=== PATIENT | female | born 1960 ===

== ENCOUNTER 2021-02-23 04:21 | Day surgery (SDC) | payer OTHER ==
[2021-02-21 13:01] VITALS: BMI 32.8
[2021-02-23] MEDS ORDERED: BUPIVACAINE LIPOSOME/PF (EXPAREL) 266 MG/20 ML VIAL ONE (08:39)
[2021-02-23] MEDS ORDERED: DEXAMETHASONE SOD PHOSPHATE 10 MG/1 ML VIAL ONE (08:39)
[2021-02-23] MEDS ORDERED: BUPIVACAINE HCL 150 ML ONE (08:39)
[2021-02-23] MEDS ORDERED: MIDAZOLAM HCL 2 MG/2 ML SINGLE DOSE VIAL ONE ×2 (08:46)
[2021-02-23] MEDS ORDERED: LIDOCAINE HCL/PF 2% SDV 5ML VIAL ONE (09:31)
[2021-02-23] MEDS ORDERED: ceFAZolin SODIUM 1 GM VIAL ONE (09:31)
[2021-02-23] MEDS ORDERED: PROPOFOL 20 ML ONE ×2 (09:32)
[2021-02-23] MEDS ORDERED: ceFAZolin SODIUM 1 GM VIAL IVPB ONE (10:17)
[2021-02-23] MEDS ORDERED: DEXAMETHASONE SOD PHOSPHATE 4 MG/1 ML VIAL ONE (10:41)
[2021-02-23] MEDS ORDERED: ONDANSETRON 4 MG/2 ML VIAL ONE (10:41)
[2021-02-23] MEDS ORDERED: ACETAMINOPHEN 325 MG TABLET (FP) PO PRN (11:20)
[2021-02-23] MEDS ORDERED: ONDANSETRON 4 MG/2 ML VIAL IVPUSH PRN (11:20)
[2021-02-23] MEDS ORDERED: LACTATED RINGERS SOLUTION 1,000 ML IV SCH (11:30)
[2021-02-23 12:56] VITALS: PULSE 74
[2021-02-23 16:41] VITALS: BP 148/85; TEMP 98
== END 2021-02-23 16:35 | disposition home or self-care (01) ==
LOC: JASU-SURG 04:21
PROVIDERS: ATTEND Orthopaedic Surgery
PROC: 0RNK4ZZ Release Left Shoulder Joint, Percutaneous Endoscopic Approach (ICD-10-PCS; principal; 2021-02-23 09:00)
PROC: 0PBB4ZZ Excision of Left Clavicle, Percutaneous Endoscopic Approach (ICD-10-PCS; 2021-02-23 09:00)
DX: M75.42 Impingement syndrome of left shoulder (principal); M75.02 Adhesive capsulitis of left shoulder
CPT/HCPCS: 94760; J1100

== ENCOUNTER 2021-08-02 04:35 | Day surgery (SDC) | payer OTHER ==
[2021-07-26 16:46] VITALS: BMI 29.6
[2021-08-02 08:42] VITALS: TEMP 98.6
[2021-08-02 09:35] VITALS: BP 143/82; PULSE 56
== END 2021-08-02 09:47 | disposition home or self-care (01) ==
LOC: JASU-ENDO 04:35
PROVIDERS: ATTEND Internal Medicine Gastroenterology
PROC: 0DJD8ZZ Inspection of Lower Intestinal Tract, Via Natural or Artificial Opening Endoscopic (ICD-10-PCS; principal; 2021-08-02 08:00)
DX: Z12.11 Encounter for screening for malignant neoplasm of colon (principal); K57.30 Diverticulosis of large intestine without perforation or abscess without bleeding; K64.8 Other hemorrhoids

== ENCOUNTER 2021-08-30 04:46 | Day surgery (SDC) | payer OTHER ==
[2021-08-30 07:26] VITALS: BMI 31.4
[2021-08-30 08:32] VITALS: TEMP 97.3
[2021-08-30 09:06] VITALS: PULSE 56
[2021-08-30 09:07] VITALS: BP 143/88
== END 2021-08-30 09:25 | disposition home or self-care (01) ==
LOC: JASU-ENDO 04:46
PROVIDERS: ATTEND Internal Medicine Gastroenterology
PROC: 0DB68ZX Excision of Stomach, Via Natural or Artificial Opening Endoscopic, Diagnostic (ICD-10-PCS; 2021-08-30)
PROC: 0DB48ZX Excision of Esophagogastric Junction, Via Natural or Artificial Opening Endoscopic, Diagnostic (ICD-10-PCS; principal; 2021-08-30 08:00)
DX: Z98.84 Bariatric surgery status (principal); K29.50 Unspecified chronic gastritis without bleeding; K44.9 Diaphragmatic hernia without obstruction or gangrene
CPT/HCPCS: 88305-TC; 88342-TC